=== PATIENT | male | born 1990 | race Caucasian/White ===

== ENCOUNTER 2021-02-08 15:18 | Emergency (ER) | payer SELFPAY ==
[~2021-02-08] VITALS: Ht 175.3 cm; Wt 68.0 kg
[2021-02-08 15:36] VITALS: BP 128/89
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
[2021-02-08] MEDS ORDERED: IBUPROFEN 400 MG TABLET. PO ONE (16:30)
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
--- NOTE | 2021-02-08 16:54 | RAD ---
Study: US RIGHT LOWER EXTREMITY ARTERIAL DUPLEX EVAL Indication: Right leg pain. Comparison: None. Technique/Findings: Duplex sonographic assessment of the right lower extremity arteries. Triphasic waveforms throughout all assessed arteries. No atheromatous plaque, flow-limiting stenosis or occlusion. Common femoral artery: 117 cm/s Deep femoral artery: 93 cm/s Proximal SFA: 108 cm/s Mid SFA: 93 cm/s Distal SFA: 124 cm/s Popliteal artery: 38 cm/s Proximal posterior tibial artery: 31 cm/s Distal posterior tibial artery: 30 cm/s Peroneal artery: 56 cm/s Anterior tibial artery: 54 cm/s DPA: 41 cm/s Impression: No arterial occlusion or flow-limiting stenosis throughout the right lower extremity. No atheromatous plaque is visualized. Expected triphasic waveforms maintained throughout. Electronically signed by: OLIVER GONZALEZ MD (02/08/2021 4:52 PM) [facility]
== END 2021-02-08 18:09 | disposition home or self-care (01) ==
LOC: ER 15:18
DX: M79.604 Pain in right leg (principal)
CPT/HCPCS: 93923; 93971; 99284

== ENCOUNTER 2021-02-10 20:31 | Emergency (ER) | payer SELFPAY ==
[~2021-02-10] VITALS: Ht 175.3 cm; Wt 72.7 kg
[2021-02-10 22:15] LABS: BASO # 0.1 x10^3/uL (0.0-0.2); BASO % 1 % (0-3); EOS # 0.1 x10^3/uL (0.0-0.7); EOS % 2 % (0-3); HEMATOCRIT 43.9 % (39.0-53.0); HEMOGLOBIN 15.3 g/dL (13.0-17.5); LYMPH # 2.5 x10^3/uL (1.0-4.8); LYMPH % 43 % (24-48); MEAN CORPUSCULAR HEMOGLOBIN 33 pg (25-35); MEAN CORPUSCULAR HGB CONC 35 g/dL (31-37); MEAN CORPUSCULAR VOLUME 93 fL (79-100); MONO # 0.6 x10^3/uL (0.0-1.1); MONO % 10 % (0-9); NEUT # 2.6 x10^3/uL (1.8-7.7); NEUT % 44 % (31-73); PLATELET COUNT 228 x10^3/uL (140-400); RED BLOOD COUNT 4.71 x10^6/uL (4.30-5.70); RED CELL DISTRIBUTION WIDTH 12.5 % (11.5-14.5); WHITE BLOOD COUNT 5.8 x10^3/uL (4.0-11.0)
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
[2021-02-10 22:22] LABS: CALCIUM 9.3 mg/dL (8.5-10.1); CREATININE 0.9 mg/dL (0.7-1.3); GFR 99.8; POTASSIUM 3.1 mmol/L (3.5-5.1)
[2021-02-10 22:28] LABS: ALBUMIN 4.5 g/dL (3.4-5.0); ALBUMIN/GLOBULIN RATIO 1.5 (1.0-1.7); TOTAL BILIRUBIN 5.6 mg/dL (0.2-1.0); TOTAL PROTEIN 7.5 g/dL (6.4-8.2)
[2021-02-10 22:32] LABS: ACETAMIN < 2 mcg/ml (10-30); ETHANOL < 10 mg/dL (0-10); SALIC < 2.8 mg/dL (2.8-20.0)
[2021-02-11] MEDS ORDERED: POTASSIUM CHLORIDE 20 MEQ TABLET.ER. PO ONE (00:30)
[2021-02-11 02:30] LABS: BILIRUBIN,URINE SMALL (NEG); CLARITY,URINE CLEAR; COLOR,URINE AMBER; NITRITE,URINE NEGATIVE (NEG); PROTEIN,URINE NEGATIVE (NEG-TRACE)
[2021-02-11 02:35] LABS: BACTERIA,URINE 0 /HPF (0-FEW); RBC,URINE 0 /HPF (0-2); WBC,URINE OCC /HPF (0-4)
[2021-02-11 02:36] LABS: BARBITURATES NEG (NEG); BENZODIAZEPINES NEG (NEG); CANNABINOIDS POS (NEG); COCAINE NEG (NEG); METHADONE NEG (NEG); OPIATES NEG (NEG); PHENCYCLIDINE NEG (NEG)
[2021-02-11 02:38] LABS: AMPHETAMINE/METHAMPHETAMINE POS (NEG)
[2021-02-11 02:47] VITALS: BP 117/59
== END 2021-02-11 03:00 ==
LOC: ER 20:31
DX: R45.851 Suicidal ideations (principal); Z20.822 Contact with and (suspected) exposure to COVID-19; E87.6 Hypokalemia; J45.909 Unspecified asthma, uncomplicated; F17.200 Nicotine dependence, unspecified, uncomplicated
CPT/HCPCS: 36415; 80053; 80307; 80329; 81001; 83735; 85025; 87426; 99285; G0480; U0003; U0005